=== PATIENT | female | born 1965 | race Asian ===

== ENCOUNTER 2017-02-19 11:36 | Inpatient (IN) | payer OTHER ==
[~2017-02-19] VITALS: Ht 152.4 cm; Wt 64.1 kg
[2017-02-19 12:24] LABS: CALCIUM 8.8 mg/dL (8.5-10.1); CARBON DIOXIDE 23.6 mmol/L (21-32); CHLORIDE SERUM 99 mmol/L (98-107); CREATININE SERUM 0.7 mg/dL (0.6-1.0); GFR1 > 60 mL/min; GLUCOSE SERUM 142 mg/dL (74-106); POTASSIUM SERUM 4.3 mmol/L (3.5-5.1); SODIUM SERUM 134 mmol/L (136-145)
[2017-02-19 12:32] LABS: ALBUMIN 3.8 g/dL (3.4-5.0); ALKALINE PHOSPHATASE 70 U/L (46-116); ALT/SGPT 24 U/L (14-59); AST/SGOT 14 U/L (15-37); BILIRUBIN TOTAL 0.26 mg/dL (0.20-1.00); TOTAL PROTEIN, SERUM 7.7 g/dL (6.4-8.2)
[2017-02-19 12:44] LABS: UA SPECIFIC GRAVITY <=1.005 (1.005-1.035); microscopic required? YES; urine erythrocyte NEGATIVE (NEGATIVE)
[2017-02-19 12:46] LABS: MAGNESIUM 1.4 mg/dL (1.8-2.4)
[2017-02-19 13:04] LABS: BASOPHIL % 0.6 % (0-2); PLATELET COUNT 378 x10^3mcL (130-400)
[2017-02-19 13:18] LABS: AMPHETAMINE QUAL UR NONE DETECTED (NEG <=1000)
[2017-02-19] MEDS ORDERED: LANTUS SOLOS100 U/M1 SQ (16:46)
[2017-02-19 17:03] LABS: CHOLESTEROL/HDL RATIO 3.6
[2017-02-19 17:07] VITALS: BP 169/66
[2017-02-19 17:10] LABS: FREE T4 1.27 ng/dL (0.76-1.46); FREE THYROXINE INDEX 3.5 ug/dL (1.4-4.5); T4(THYROXINE) 10.4 ug/dL (4.7-13.3)
[2017-02-19 17:11] LABS: T3 TOTAL 1.04 ng/mL
[2017-02-19] MEDS ORDERED: LOSARTAN POTASS50 M1 PO (18:47)
[2017-02-19] MEDS ORDERED: LOVASTATIN40 MG PO (18:49)
[2017-02-19] MEDS ORDERED: METFORMIN HCL1000 MG PO (18:49)
[2017-02-19 21:42] VITALS: BP 134/80
[2017-02-20 05:44] VITALS: BP 136/56
[2017-02-20 06:16] LABS: BASOPHIL % 0.5 % (0-2); PLATELET COUNT 390 x10^3mcL (130-400)
[2017-02-20 06:23] LABS: CALCIUM 8.4 mg/dL (8.5-10.1); CHLORIDE SERUM 103 mmol/L (98-107); CREATININE SERUM 0.7 mg/dL (0.6-1.0); GFR1 > 60 mL/min; GLUCOSE SERUM 167 mg/dL (74-106); MAGNESIUM 2.2 mg/dL (1.8-2.4); PHOSPHOROUS 4.4 mg/dL (2.5-4.9); POTASSIUM SERUM 4.3 mmol/L (3.5-5.1); SODIUM SERUM 139 mmol/L (136-145)
[2017-02-20 06:56] LABS: RED CELL DISTRIBUTION WIDTH 16.6 % (11.5-14.5)
[2017-02-20 06:57] LABS: rbc morphology (normal/abnorm) ABNORMAL (NORMAL)
[2017-02-20 09:44] VITALS: BP 142/71
[2017-02-20 09:54] LABS: microscopic required? YES; urine erythrocyte TRACE (NEGATIVE)
[2017-02-20 12:53] VITALS: BP 151/79
[2017-02-20 17:40] VITALS: BP 151/72
[2017-02-20 20:17] VITALS: BP 151/75
[2017-02-21 06:47] LABS: BASOPHIL % 0.6 % (0-2)
[2017-02-21 06:48] LABS: PLATELET COUNT 403 x10^3mcL (130-400); RED CELL DISTRIBUTION WIDTH 17.3 % (11.5-14.5)
[2017-02-21 06:52] VITALS: BP 139/72
[2017-02-21 06:58] LABS: CALCIUM 8.4 mg/dL (8.5-10.1); CARBON DIOXIDE 23.8 mmol/L (21-32); CHLORIDE SERUM 107 mmol/L (98-107); CREATININE SERUM 0.7 mg/dL (0.6-1.0); GFR1 > 60 mL/min; GLUCOSE SERUM 114 mg/dL (74-106); PHOSPHOROUS 3.9 mg/dL (2.5-4.9); POTASSIUM SERUM 4.2 mmol/L (3.5-5.1); SODIUM SERUM 140 mmol/L (136-145)
[2017-02-21 09:30] VITALS: BP 145/78
[2017-02-21] MEDS ORDERED: FER300 PO (09:38)
[2017-02-21] MEDS ORDERED: BG FS (09:39)
[2017-02-21] MEDS ORDERED: COL100 PO (09:40)
[2017-02-21] MEDS ORDERED: PHARMASSURE VI500 MG PO (09:42)
[2017-02-21] MEDS ORDERED: CIPRO250 MG PO (09:46)
[2017-02-21] MEDS ORDERED: LAC PO (09:46)
[2017-02-21 10:10] VITALS: BP 145/78
== END 2017-02-21 12:40 | disposition home or self-care (01) | DRG 203 ==
LOC: ED 11:36 → DU 16:06
PROVIDERS: Emergency Medicine; Family Medicine; ADMIT Family Medicine
DX: M94.0 Chondrocostal junction syndrome [Tietze] (principal); D68.69 Other thrombophilia; I42.9 Cardiomyopathy, unspecified; E11.65 Type 2 diabetes mellitus with hyperglycemia; E87.1 Hypo-osmolality and hyponatremia; N39.0 Urinary tract infection, site not specified; E78.5 Hyperlipidemia, unspecified; I10 Essential (primary) hypertension; Z90.710 Acquired absence of both cervix and uterus; D64.9 Anemia, unspecified; Z79.4 Long term (current) use of insulin; Z79.84 Long term (current) use of oral hypoglycemic drugs
CPT/HCPCS: 82962; 83880; 84439; 85378; J0696; J1815; J2916; J3475; J7030; J8597; Q0092; Q9967